=== PATIENT | male | born 1975 ===

== ENCOUNTER 2017-09-12 06:52 | Day surgery (SDC) | payer OTHER ==
[~2017-09-12 06:52] MED LIST: FORTAMET500 MG; LISINOPRIL5 MG; ZOCOR40 MG
[2017-09-12] MEDS ORDERED: RECTICARE30 GM TOP (09:22)
[2017-09-12] MEDS ORDERED: PERCOCET 5-3251 EACH PO (09:22)
== END 2017-09-12 12:50 | disposition home or self-care (01) ==
LOC: CIR.AMB 06:52
DX: K64.2 Third degree hemorrhoids (principal)